=== PATIENT | male | born 2000 | race Caucasian/White ===

== ENCOUNTER 2018-05-21 15:19 | Emergency (ER) | payer OTHER ==
[~2018-05-21] VITALS: Ht 182.9 cm; Wt 81.8 kg
[2018-05-21 15:24] VITALS: BP 130/77
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
[2018-05-21] MEDS ORDERED: IBUP-1022 PO (16:17)
== END 2018-05-21 16:28 | disposition home or self-care (01) ==
LOC: M ED 15:19
DX: S60.221A Contusion of right hand, initial encounter (principal); W22.8XXA Striking against or struck by other objects, initial encounter; Y92.410 Unspecified street and highway as the place of occurrence of the external cause

== ENCOUNTER 2019-01-17 10:39 | Emergency (ER) | payer OTHER ==
[~2019-01-17] VITALS: Ht 185.4 cm; Wt 95.5 kg
[~2019-01-17 10:39] MED LIST: IBUP-1022 PO
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
[2019-01-17 13:33] VITALS: BP 121/53
== END 2019-01-17 13:43 | disposition home or self-care (01) ==
LOC: M ED 10:39
DX: S13.9XXA Sprain of joints and ligaments of unspecified parts of neck, initial encounter (principal); S00.12XA Contusion of left eyelid and periocular area, initial encounter; S01.511A Laceration without foreign body of lip, initial encounter; S09.93XA Unspecified injury of face, initial encounter; W22.8XXA Striking against or struck by other objects, initial encounter; Y92.133 Barracks on military base as the place of occurrence of the external cause; Y93.9 Activity, unspecified; Y99.1 Military activity; Z77.098 Contact with and (suspected) exposure to other hazardous, chiefly nonmedicinal, chemicals; Z88.1 Allergy status to other antibiotic agents